=== PATIENT | female | born 1975 | race Caucasian/White ===

== ENCOUNTER 2023-07-05 12:42 | Emergency (ER) | payer OTHER ==
[~2023-07-05] VITALS: Ht 170.2 cm; Wt 95.0 kg
[2023-07-05 12:49] VITALS: O2SAT 98
[2023-07-05 19:03] VITALS: BP 139/74; PULSE 75; RESP 20; TEMP 98
== END 2023-07-05 19:06 | disposition home or self-care (01) ==
LOC: ER 13:12
DX: T83.092A Other mechanical complication of nephrostomy catheter, initial encounter (principal); X58.XXXA Exposure to other specified factors, initial encounter
CPT/HCPCS: 99283

== ENCOUNTER 2023-09-06 11:43 | Emergency (ER) | payer MEDICAID ==
[~2023-09-06] VITALS: Ht 170.2 cm; Wt 73.0 kg
[2023-09-06 11:46] VITALS: O2SAT 97
[2023-09-06 13:17] LABS: CLARITY URINE TURBID (CLEAR); COLOR URINE YELLOW (YELLOW); GLUCOSE URINE NEGATIVE (NEGATIVE); KETONES URINE NEGATIVE (NEGATIVE); LEUKOCYTE ESTERASE URINE 3+ (NEGATIVE); NITRITE URINE NEGATIVE (NEGATIVE); OCCULT BLOOD URINE 2+ (NEGATIVE); PROTEIN URINE TRACE (NEGATIVE); SPECIFIC GRAVITY URINE 1.006 (1.005-1.030); UROBILINOGEN URINE 0.2 E.U./dL (0.2-1.0)
[2023-09-06] MEDS ORDERED: CEFP100S5 MT (13:23)
[2023-09-06 13:33] LABS: SQUAMOUS EPITHELIAL CELL URINE 1+ /lpf (RARE/1+)
[2023-09-06 13:34] LABS: WBC URINE TNTC /hpf (0-2)
[2023-09-06 13:35] LABS: BACTERIA URINE 3+; RBC URINE 0-2 /hpf (0-2)
[2023-09-06 14:01] VITALS: BP 133/82; PULSE 103; RESP 18; TEMP 98.4
== END 2023-09-06 14:04 | disposition home or self-care (01) ==
LOC: ER 11:43
DX: T83.028A Displacement of other urinary catheter, initial encounter (principal); N39.0 Urinary tract infection, site not specified; N13.39 Other hydronephrosis; Z87.442 Personal history of urinary calculi; Z98.890 Other specified postprocedural states; X58.XXXA Exposure to other specified factors, initial encounter; Y93.89 Activity, other specified; Y92.89 Other specified places as the place of occurrence of the external cause; Y99.8 Other external cause status
CPT/HCPCS: 81003; 81025; 87077; 87186; 99283